=== PATIENT | female | born 2000 | race African-American/Black ===

== ENCOUNTER 2018-12-02 16:46 | Emergency (ER) | payer SELFPAY ==
--- NOTE | 2018-12-02 17:24 | EDPHYS ---
Physician Documentation [facility] Name: Porsha Nicholson Age: 18 yrs Sex: Female : 2000 Arrival Date: 12/02/2018 Time: 16:49 Bed 11 Private MD: ED Physician Tuan Millan HPI: 12/02 17:20 This 18 yrs old Black Female presents to ER via Ambulatory with complaints of Vaginal kb Itching. 17:20 The patient presents with perineal itching. Onset: The symptoms/episode began/occurred kb "months ago". Modifying factors: The symptoms are alleviated by nothing, the symptoms are aggravated by nothing. Associated signs and symptoms: Pertinent positives: vaginal itching, Pertinent negatives: constipation, cramping, diarrhea, dyspareunia, dysuria, fever, hematuria, nausea, urinary frequency, vaginal bleeding, vaginal discharge, vomiting. Severity of symptoms: At their worst the symptoms were moderate, in the emergency department the symptoms are unchanged. The patient has not experienced similar symptoms in the past. The patient has not recently seen a physician. Pt states she has had vaginal itching for a few months. States "I should have come sooner, but I didn't have a chance." States she wanted to see if she had a UTI or STD. Also requests a PAP smear be done. Educated that we do not perform PAP smears in the ER. Given information on the [facility]'s STD clinic.. OFFICE COORDINATOR: 16:52 LMP 11/14/2018 Historical: - Allergies: 16:52 No Known Allergies; hj - PMHx: 16:52 None; hj - PSHx: 16:52 None; ROS: 17:18 Constitutional: Negative for fever, chills, and weight loss, Cardiovascular: Negative kb for chest pain, palpitations, and edema, Respiratory: Negative for shortness of breath, cough, wheezing, and pleuritic chest pain, Abdomen/GI: Negative for abdominal pain, nausea, vomiting, diarrhea, and constipation, Back: Negative for injury and pain, MS/Extremity: Negative for injury and deformity, Skin: Negative for injury, rash, and discoloration, Neuro: Negative for headache, weakness, numbness, tingling, and seizure. 17:18 : Positive for vaginal itching. Exam: 17:18 Constitutional: This is a well developed, well nourished patient who is awake, alert, kb and in no acute distress. Head/Face: Normocephalic, atraumatic. Chest/axilla: Normal chest wall appearance and motion. Nontender with no deformity. No lesions are appreciated. Cardiovascular: Regular rate and rhythm with a normal S1 and S2. No gallops, murmurs, or rubs. Normal PMI, no JVD. No pulse deficits. Respiratory: Lungs have equal breath sounds bilaterally, clear to auscultation and percussion. No rales, rhonchi or wheezes noted. No increased work of breathing, no retractions or nasal flaring. Abdomen/GI: Soft, non-tender, with normal bowel sounds. No distension or tympany. No guarding or rebound. No evidence of tenderness throughout. Back: No spinal tenderness. No costovertebral tenderness. Full range of motion. Skin: Warm, dry with normal turgor. Normal color with no rashes, no lesions, and no evidence of cellulitis. MS/ Extremity: Pulses equal, no cyanosis. Neurovascular intact. Full, normal range of motion. Neuro: Awake and alert, GCS 15, oriented to person, place, time, and situation. Cranial nerves II-XII grossly intact. Motor strength 5/5 in all extremities. Sensory grossly intact. Cerebellar exam normal. Normal gait. Vital Signs: 16:52 BP 102 / 68; Pulse 90; Resp 16; Temp 98.7(TE); Pulse Ox 100% on R/A; Weight 45.36 kg; hj Height 4 ft. 11 in. (149.86 cm); Pain 0/10; 16:52 Body Mass Index 20.20 (45.36 kg, 149.86 cm) MDM: 17:02 Patient medically screened. kb 17:17 Data reviewed: vital signs, nurses notes. Data interpreted: Pulse oximetry: on room air kb is 100 %. Interpretation: normal. Counseling: I had a detailed discussion with the patient and/or guardian regarding: the historical points, exam findings, and any diagnostic results supporting the discharge/admit diagnosis, lab results, the need for outpatient follow up, an OB/Gyne specialist, to return to the emergency department if symptoms worsen or persist or if there are any questions or concerns that arise at home. 05/16 17:29 Order name: Urine Dipstick--Ancillary (enter results) eb 12/02 17:29 Order name: Urine --Ancillary (enter results) eb Administered Medications: 17:34 Drug: DiFLUcan 150 mg Route: PO; iw 17:40 Follow up: Response: No adverse reaction iw Disposition: 12/03 09:22 Co-signature as Attending Physician, Tuan Millan MD. Disposition: 12/02/18 17:23 Discharged to Home. Impression: Candidiasis of vulva and vagina. - Condition is Stable. - Discharge Instructions: Vaginal Yeast Infection, Adult. - Medication Reconciliation Form, Thank You Letter, Antibiotic Education, Prescription Opioid Use form. - Follow up: Emergency Department; When: As needed; Reason: Worsening of condition. Follow up: Private Physician; When: 2 - 3 days; Reason: Recheck today's complaints, Continuance of care, Re-evaluation by your physician. Signatures: Dispatcher [employer] EDMarli Perea, AGRICULTURE LABORATORY TECHNICIAN-C AGRICULTURE LABORATORY TECHNICIAN-Rodneyb Tisha Schmitz RN RN Darren Martinez RN RN hj Starr, Gregory, MD MD Corrections: (The following items were deleted from the chart) 12/02 17:34 17:23 12/02/2018 17:23 Discharged to Home. Impression: Candidiasis of vulva and vagina. iw Condition is Stable. Forms are Medication Reconciliation Form, Thank You Letter, Antibiotic Education, Prescription Opioid Use. Follow up: Emergency Department; When: As needed; Reason: Worsening of condition. Follow up: Private Physician; When: 2 - 3 days; Reason: Recheck today's complaints, Continuance of care, Re-evaluation by your physician. kb
--- NOTE | 2018-12-02 17:24 | ER ---
Nurse's Notes [facility] Name: Porsha Nicholson Age: 18 yrs Sex: Female : 2000 Arrival Date: 12/02/2018 Time: 16:49 Bed 11 Private MD: Diagnosis: Candidiasis of vulva and vagina Presentation: 12/02 16:51 Presenting complaint: Patient states: i have this vaginal itch that has been going on for months now; denies using OTC cream;. Transition of care: patient was not received from another setting of care. Onset of symptoms was December 02, 2018. Risk Assessment: Do you want to hurt yourself or someone else? Patient reports no desire to harm self or others. Initial Sepsis Screen: Does the patient meet any 2 criteria? No. Patient's initial sepsis screen is negative. Does the patient have a suspected source of infection? No. Patient's initial sepsis screen is negative. Care prior to arrival: None. 16:51 Method Of Arrival: Ambulatory 16:51 Acuity: TONY 4 hj MECHANICAL ENGINEERING SPECIALIST: 16:52 LMP 11/14/2018 Historical: - Allergies: 16:52 No Known Allergies; - PMHx: 16:52 None; - PSHx: 16:52 None; Vital Signs: 16:52 BP 102 / 68; Pulse 90; Resp 16; Temp 98.7(TE); Pulse Ox 100% on R/A; Weight 45.36 kg; hj Height 4 ft. 11 in. (149.86 cm); Pain 0/10; 16:52 Body Mass Index 20.20 (45.36 kg, 149.86 cm) ED Course: 16:49 Patient arrived in ED. mr 16:50 Marli Del Rosario FNP-C is [facility]. kb 16:50 Tuan Millan MD is Attending Physician. kb 16:52 Triage completed. hj 16:54 Arm band placed on left wrist. hj 17:16 Tisha Schmitz, DANITA is Primary Nurse. iw 17:17 Urine collected: clean catch specimen, clear, toby colored. jb1 Administered Medications: 17:34 Drug: DiFLUcan 150 mg Route: PO; iw 17:40 Follow up: Response: No adverse reaction iw Outcome: 17:23 Discharge ordered by . kb 17:34 Patient left the ED. iw Signatures: Jackson Peacock jb1 Marli Del Rosario, HOME CARE PROVIDER-C HOME CARE PROVIDER-Ckb Diandra Vincent mr Tisha Schmitz, RN RN iw Darren Martinez RN RN hj Corrections: (The following items were deleted from the chart) 16:54 16:52 Pulse 90bpm; Resp 16bpm; Pulse Ox 100% RA; Temp 98.7F Temporal; 45.36 kg; Height hj 4 ft. 11 in.; BMI: 20.2; Pain 0/10; hj
[2018-12-02 17:35] LABS: Urine Blood NEGATIVE (NEG); Urine Glucose NEGATIVE (NEG); Urine Protein NEGATIVE (NEG); Urine Specific Gravity 1.015 (1.005-1.030)
[2018-12-02] MEDS ORDERED: FLUCONAZOLE 100 MG TAB ONE (17:44)
== END 2018-12-02 17:34 | disposition home or self-care (01) ==
LOC: ER 16:46
DX: B37.3 Candidiasis of vulva and vagina (principal)
CPT/HCPCS: 81003; 81025; 99283